=== PATIENT | male | born 1995 | race African-American/Black ===

== ENCOUNTER 2018-11-11 12:15 | Emergency (ER) | payer SELFPAY ==
[~2018-11-11] VITALS: Ht 193 cm; Wt 68.2 kg
[2018-11-11 12:21] VITALS: BP 121/84; Ht 193 cm; Wt 68.2 kg
[2018-11-11 15:38] LABS: APPEARANCE CLEAR (CLEAR); COLOR YELLOW (YELLOW)
[2018-11-11 15:39] LABS: BILIRUBIN NEGATIVE (NEGATIVE); GLUCOSE NEGATIVE (NEGATIVE); KETONE NEGATIVE (NEGATIVE); NITRITE NEGATIVE (NEGATIVE); PROTEIN NEGATIVE (NEGATIVE); UROBILINOGEN NORMAL (NORMAL)
== END 2018-11-11 16:46 | disposition home or self-care (01) ==
LOC: D.ER 12:15
PROVIDERS: Family Medicine
DX: A64 Unspecified sexually transmitted disease (principal)

== ENCOUNTER 2020-12-28 09:59 | Emergency (ER) | payer SELFPAY ==
[~2020-12-28] VITALS: Ht 193 cm; Wt 68.2 kg
[~2020-12-28 09:59] MED LIST: OMNICEF300 MG PO
[2020-12-28 10:04] VITALS: BP 99/64; Ht 193 cm; Wt 68.2 kg
[2020-12-28] MEDS ORDERED: DOXYCYCLINE HY100 M2 PO (10:31)
[2020-12-28 10:57] LABS: KETONE NEGATIVE (NEGATIVE); NITRITE NEGATIVE (NEGATIVE)
[2020-12-28 10:58] LABS: BACTERIA FEW HPF (NONE SEEN); BILIRUBIN NEGATIVE (NEGATIVE); SQUAMOUS EPITHELIAL OCC HPF (0-4); WHITE CELLS - URINE 0-5 HPF (0-1)
== END 2020-12-28 11:17 | disposition home or self-care (01) ==
LOC: D.ER 09:59
PROVIDERS: Family Medicine
DX: N34.2 Other urethritis (principal)